=== PATIENT | female | born 1940 | race Caucasian/White ===

== ENCOUNTER → 2020-11-02 | Outpatient (REF) | payer MEDICARE, BC ==
[2020-11-02 16:47] LABS: OSMOLALITY SERUM 272 MOSM/KG (280-301)
[2020-11-02 16:49] LABS: ALBUMIN 3.9 GM/DL (3.2-5.2); BLOOD UREA NITROGEN 15 MG/DL (7-18); CALCIUM LEVEL 9.2 MG/DL (8.8-10.2); CARBON DIOXIDE LEVEL 27 MEQ/L (21-32); CHLORIDE LEVEL 97 MEQ/L (98-107); CREATININE FOR GFR 0.65 MG/DL (0.55-1.30); GLOMERULAR FILTRATION RATE > 60.0 (>32); GLUCOSE, FASTING 94 MG/DL (70-100); PHOSPHORUS LEVEL 4.3 MG/DL (2.5-4.9); POTASSIUM SERUM 4.9 MEQ/L (3.5-5.1); SODIUM LEVEL 131 MEQ/L (136-145)
== END ==
LOC: M LABDRAWC 15:51
DX: E87.1 Hypo-osmolality and hyponatremia (principal)